=== PATIENT | male | born 1965 | race Asian ===

== ENCOUNTER → 2021-04-07 | Outpatient (CLI) | payer OTHER ==
--- NOTE | 2021-04-07 17:47 | RAD ---
EXAM: XR LUMBAR SPINE 2-3V, XR KNEE 1-2 VIEWS 04/07/2021 12:33 PM CLINICAL INDICATION: Low back pain and bilateral knee pain COMPARISON: None TECHNIQUE: 2 views of the lumbar spine, 2 views of the right and left knee FINDINGS: Lumbar spine: There 5 nonrib-bearing lumbar vertebral bodies. No acute fracture. Alignment is normal. There are anterior osteophytes at T12-L1 and minimal osteophytes at L4-L5 and L5-S1. No significant facet arthrosis. Knees: No acute fracture. Alignment is normal. Joint spaces are maintained. There tiny patellofemoral osteophytes bilaterally. No joint effusion. IMPRESSION: 1. Mild degenerative disc disease at T12-L1, L4-L5, and L5-S1. 2. Minimal degenerative changes of the knees. Electronically signed by: Erika Degroot MD (04/07/2021 5:45 PM) [id number]
== END ==
LOC: RAD 12:13
PROVIDERS: ATTEND Anesthesiology Pain Medicine
DX: M51.37 Other intervertebral disc degeneration, lumbosacral region (principal); M25.78 Osteophyte, vertebrae; M25.562 Pain in left knee; M25.561 Pain in right knee
CPT/HCPCS: 72100; 73560-50

== ENCOUNTER → 2021-05-21 | Outpatient (CLI) | payer OTHER ==
--- NOTE | 2021-05-22 00:23 | KCIC ---
EXAMINATION: XR LUMBAR SPINE 4+V CLINICAL HISTORY: Low back pain, radiates into hips. TECHNIQUE: XR LUMBAR SPINE 4+V COMPARISON: 04/07/2021 FINDINGS/ IMPRESSION: No significant interval change. Normal anatomic alignment. No definitive evidence of acute fracture or spondylolisthesis. 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 Minimal degenerative disc disease. [id number] facet arthropathy in the lower lumbar spine with neural foraminal narrowing. SI joints maintained. Paraspinal soft tis sues unremarkable. Electronically signed by: Jesus Adrian DO (05/22/2021 12:20 AM) ANDREI
== END ==
LOC: KCIC 14:14
PROVIDERS: ATTEND Family Medicine
DX: M51.36 Other intervertebral disc degeneration, lumbar region (principal); M47.816 Spondylosis without myelopathy or radiculopathy, lumbar region; M48.061 Spinal stenosis, lumbar region without neurogenic claudication; M43.06 Spondylolysis, lumbar region; M54.9 Dorsalgia, unspecified
CPT/HCPCS: 72110